=== PATIENT | male | born 1985 | race Caucasian/White ===

== ENCOUNTER 2023-12-15 18:40 | Emergency (ER) | payer BC ==
[2023-12-15] MEDS: Ketorolac 30 MG/ML SDV IVPUSH ONE (19:45)
[2023-12-15] MEDS: Sodium Chloride 0.9% 10 ML Syringe FLUSH PRN (19:46)
[2023-12-15] MEDS: Ondansetron 4 MG/2 ML SDV IVPUSH ONE (19:46)
[2023-12-15 19:55] LABS: BASOPHILS PERCENT AUTO 0.2 % (0.0-1.0); EOSINOPHILS ABSOLUTE AUTO 0.2 K/mm3 (0.0-0.4); EOSINOPHILS PERCENT AUTO 1.6 % (0.0-6.0); HEMATOCRIT 43.3 % (42.0-52.0); HEMOGLOBIN 15.1 gm/dl (14.0-18.0); IMMATURE GRAN ABSOLUTE AUTO 0.05 K/mm3 (0.00-0.05); IMMATURE GRAN PERCENT AUTO 0.4 % (0.0-0.4); LYMPHOCYTES ABSOLUTE AUTO 1.5 K/mm3 (1.0-4.8); LYMPHOCYTES PERCENT AUTO 11.4 % (24.0-44.0); MEAN CORPUSCULAR HEMOGLOBIN 30.7 pg (28.0-32.0); MEAN CORPUSCULAR HGB CONC 34.9 g/dl (32.0-36.0); MEAN PLATELET VOLUME 9.5 fl (9.4-12.4); MONOCYTES PERCENT AUTO 7.8 % (0.0-8.0); NEUTROPHILS PERCENT AUTO 78.6 % (41.0-71.0); PLATELET COUNT,PLT 197 K/mm3 (150-400); RED BLOOD CELL COUNT 4.92 M/mm3 (4.52-5.90); WHITE BLOOD CELL COUNT,WBC 12.76 K/mm3 (3.9-11.3)
[2023-12-15 20:15] LABS: A/G RATIO 1.3 (1-2); ALBUMIN 4.1 g/dl (3.4-5.0); ANION GAP 12.9 (5-15); BILIRUBIN TOTAL 0.8 mg/dL (0.2-1.0); BUN/CREATININE RATIO 13.3 (14-18); CALCIUM 9.2 mg/dL (8.5-10.1); CREATININE 1.2 mg/dL (0.7-1.3); EST CRCL DRUG DOSING (CG) 79.84 mL/min; MAGNESIUM 2.1 mg/dL (1.8-2.4); POTASSIUM,K 3.9 mEq/L (3.5-5.1); PROTEIN TOTAL,TP 7.2 g/dl (6.4-8.2)
[2023-12-15 20:22] LABS: APPEARANCE,URINE CLEAR (Clear); BILIRUBIN,URINE NEGATIVE (Negative); COLOR,URINE YELLOW (Yellow); GLUCOSE,URINE NEGATIVE (Negative); KETONES,URINE NEGATIVE (Negative); LEUKOCYTE ESTERASE,URINE NEGATIVE (Negative); NITRITE,URINE NEGATIVE (Negative); OCCULT BLOOD,URINE NEGATIVE (Negative); PH,URINE 6.5 (5.0-8.0); PROTEIN,URINE NEGATIVE (Negative); UROBILINOGEN,URINE 0.2 (0.2-1.0)
[2023-12-15] MEDS ORDERED: Dicyclomine 10 MG Cap PO ONE (20:58)
== END 2023-12-15 21:23 | disposition home or self-care (01) ==
LOC: JD.ED 18:40
DX: A08.4 Viral intestinal infection, unspecified (principal); Z86.16 Personal history of COVID-19
CPT/HCPCS: 36415; 74176; 80053; 81003; 83690; 83735; 84550; 85025; 96374; 96375; 99284; J1885; J2405; J3490